=== PATIENT | female | born 2000 | race Hispanic/Latino ===

== ENCOUNTER 2021-10-31 18:07 | Emergency (ER) | payer MEDICAID, OTHER ==
[~2021-10-31] VITALS: Ht 167.6 cm; Wt 76.7 kg
[2021-10-31 18:14] VITALS: BP 115/77
== END 2021-10-31 22:35 | disposition left against medical advice (07) ==
LOC: EDH 18:07
DX: M54.50 Low back pain, unspecified (principal); Z53.21 Procedure and treatment not carried out due to patient leaving prior to being seen by health care provider

== ENCOUNTER 2025-09-24 21:07 | Emergency (ER) | payer SELFPAY ==
[~2025-09-24] VITALS: Ht 165.1 cm; Wt 80.7 kg
--- NOTE | 2025-09-24 21:09 | NUR ---
UA CUP PROVIDED
--- NOTE | 2025-09-24 21:21 | ERN ---
ED Note History of Present Illness Stated Complaint: ABD PAIN, Chief Complaint: Abdominal Pain Time Seen by MD: 21:11 Dictation: This is a 25-year-old female who presented to the emergency room complaining of abdominal discomfort that started about 5-6 hours ago. She has a known history of GERD and burning in her chest and she tried taking Pepcid and Tums drank water as it was persistent she came to the ER. No vomitings hematemesis or melena. No history of any cholelithiasis. Due to holidays she does admit to dietary indiscretions. No fever chills or rigors. Temperature 98.1 pulse 100 respirations 20 blood pressure 149/94 with a pulse oximetry of 99% on room air Chronic problems include gastroesophageal reflux disease but she has not never been formally evaluated with an EGD. Allergies: Coded Allergies: caffeine (Unverified Allergy, Unknown, 10/31/21) Home Meds Active Scripts Omeprazole (Omeprazole) 40 Mg Capsule.dr, 1 CAP PO DAILY for 30 Days, #30 CAP 0 Refills Prov:JOHN MONTES MD 09/24/25 Past Medical History Past Medical History: GERD, Other Additional Past Medical Hx: BACK PAIN Surgical History: None Family History: Negative Social History: Negative LMP: Sep 10, 2025 RN Note Reviewed/Agreed w/PFSH: Yes Review of System Dictation Constitutional: Negative for fever,chills, and weight loss Eyes: Negative for injury, pain,redness, and discharge ENT: Negative for injury,pain or swelling Cardiovascular: Negative for chest pain, palpitations, and edema Respiratory: Negative for shortness of breath, cough, and wheezing, Abdomen/GI: Negative for abdominal pain, nausea, vomiting, diarrhea, and constipation positive for heartburn and severe reflux Back: Negative for injury and pain : Negative for injury, bleeding and discharge MS/Extremity: Negative for injury and deformity Skin: Negative for rash, and discoloration Neuro: Negative for headache, weakness, numbness, tingling, and seizure Psych: Negative for suicide ideation, homicidal ideation, and hallucinations Initial Vital Sign VS Vital Signs Date Time Temp Pulse Resp B/P (MAP) Pulse Ox O2 Delivery O2 Flow Rate FiO2 09/24/25 21:09 98.1 100 20 149/94 99 Room Air 09/24/25 21:25 0 21 Physical Exam Dictation General: awake, alert, NAD Head/Face: Normocephalic, atraumatic Eyes: PERRL, EOMI, vision at baseline ENT: oral cavity clear, TMs clear, no signs of infection Neck: Trachea midline, supple, no nuchal rigidity Cardiovascular: RRR, normal S1/S2, No MRGs, no JVD mild tenderness in the xiphoid area Respiratory: CTAB, no respiratory distress, No rales or wheezes Abdomen: Soft, non-tender, non-distended, normal bowel sounds, no guarding or rebound. Skin: Warm, dry, normal turgor, no rash MS/Extremity: Pulses equal, no cyanosis, neurovascular intact, FROM Neuro: COAx4, GCS 15, strength 5/5, CN 2-12 intact, normal cerebellar exam, normal gait, Psych: Normal behavior, mood, and affect normal Extremities-trace edema without any palpable cords, Homans sign is negative Results (Laboratory/Radiology) Laboratory/Radiology Laboratory Tests Test 09/24/25 21:13 09/24/25 21:23 Urine Color LIGHT-YELLOW (YELLOW) Urine Appearance CLEAR (CLEAR) Urine pH 6.0 (5.0-8.0) Urine Specific Flora 1.016 (1.001-1.031) Urine Protein NEGATIVE mg/dL (NEGATIVE) Urine Glucose (UA) NEGATIVE mg/dL (NEGATIVE) Urine Ketones NEGATIVE mg/dL (NEGATIVE) Urine Occult Blood SMALL (NEGATIVE) H Urine Nitrate NEGATIVE (NEGATIVE) Urine Bilirubin NEGATIVE mg/dL (NEGATIVE) Urine Urobilinogen 0.2 mg/dL (0.2-1.0) Urine Leukocyte Esterase NEGATIVE Antoni/uL Urine RBC 2-5 /HPF (0-1) H Urine WBC 0-1 /HPF (0-1) Urine WBC Clumps (Auto) R /HPF (0-1) Urine Squamous Epithelial Cells Few /HPF (0-2) Urine Bacteria Rare /HPF (None Seen) Urine HCG, Qualitative NEGATIVE (NEGATIVE) White Blood Count 10.7 K/uL (4.8-10.8) Red Blood Count 4.15 MIL/uL (4.00-5.50) Hemoglobin 12.0 g/dL (12.0-16.0) Hematocrit 36.9 % (36-48) Mean Corpuscular Volume 88.9 fL (79-99) Mean Corpuscular Hemoglobin 28.9 pg (27.0-33.0) Mean Corpuscular Hemoglobin Concent 32.5 g/dL (32.0-36.0) Red Cell Distribution Width 12.9 % (11.0-15.5) Platelet Count 362 K/uL (130-400) Mean Platelet Volume 8.9 fL (7.5-10.5) Immature Granulocyte % (Auto) 0.5 % (0-1) Neutrophils (%) (Auto) 55.3 % (40.0-77.0) Lymphocytes (%) (Auto) 32.1 % (21.0-51.0) Monocytes (%) (Auto) 8.1 % (3.0-13.0) Eosinophils (%) (Auto) 3.5 % (0.0-8.0) Basophils (%) (Auto) 0.5 % (0.0-5.0) Neutrophils # (Auto) 5.9 K/uL (1.8-7.7) Lymphocytes # (Auto) 3.4 K/uL (1.0-4.8) Monocytes # (Auto) 0.9 K/uL (0.1-1.0) Eosinophils # (Auto) 0.37 K/uL (0.00-0.70) Basophils # (Auto) 0.05 K/uL (0.00-0.20) Absolute Immature Granulocyte (auto 0.05 K/uL (0-1) Nucleated Red Blood Cells 0.0 % (0.0-0.19) Sodium Level 137 mmol/L (136-145) Potassium Level 3.6 mmol/L (3.5-5.1) Chloride Level 100 mmol/L (101-111) L Carbon Dioxide Level 27 mmol/L (21-32) Blood Urea Nitrogen 13 mg/dL (7-18) Creatinine 0.8 mg/dL (0.5-1.0) Glomerular Filtration Rate Calc 104 mL/min (>90) Random Glucose 105 mg/dL (70-105) Total Calcium 8.9 mg/dL (8.5-10.1) Total Bilirubin 0.2 mg/dL (0.2-1.0) Direct Bilirubin < 0.1 mg/dL (0.0-0.3) Aspartate Amino Transf (AST/SGOT) 41 U/L (10-37) H Alanine Aminotransferase (ALT/SGPT) 97 U/L (12-78) H Alkaline Phosphatase 89 U/L (50-136) Total Protein 7.9 g/dL (6.0-8.3) Albumin 3.9 g/dL (3.5-5.0) Lipase 26 U/L (16-77) ED Course ED Course Orders Procedure Category Date Status Time Cbc With Differential LAB 09/24/25 Complete 21:10 Basic Metabolic Panel LAB 09/24/25 Complete 21:10 Hepatic Function Panel LAB 09/24/25 Complete 21:10 Lipase LAB 09/24/25 Complete 21:10 ,Urine Test LAB 09/24/25 Complete 21:10 Urinalysis Profile LAB 09/24/25 Complete 21:10 Lidocaine Hcl 2% PHA 09/24/25 Complete Viscous (Lidocaine Hcl 21:30 Mag/Alum/Simeth 30ml PHA 09/24/25 Complete (Maalox Plus 30ml) 21:30 Dicyclomine Hcl PHA 09/24/25 Complete (Bentyl 10mg/5ml 21:30 Current Medications Medications (Trade) Dose Ordered Sig/Meño Route PRN Reason Start Time Stop Time Status Last Admin Dose Admin Al Hydroxide/Mg Hydroxide (MAALox PLUS 30ML) 30 ml ONCE ONCE PO 09/24/25 21:30 09/24/25 21:31 DC 09/24/25 21:35 Dicyclomine HCl (Bentyl 10mg/5ml Syrup) 10 mg ONCE ONCE PO 09/24/25 21:30 09/24/25 21:31 DC 09/24/25 21:37 Lidocaine HCl (Lidocaine HCl 2% Viscous) 10 ml ONCE ONCE PO 09/24/25 21:30 09/24/25 21:31 DC 09/24/25 21:35 Vital Signs Date Time Temp Pulse Resp B/P (MAP) Pulse Ox O2 Delivery O2 Flow Rate FiO2 09/24/25 22:37 98.1 75 16 115/80 99 Room Air* 0 09/24/25 21:25 98.1 100 18 125/91 99 Room Air* 0 09/24/25 21:09 98.1 100 20 149/94 99 Room Air Medical Decision Making MDM Differential diagnosis: Gastritis, esophagitis, gastroesophageal reflux disease, acute cholecystitis, peptic ulcer disease, gastroenteritis, colitis, constipation, pancreatitis This is a 25-year-old female who presented to the emergency room complaining of abdominal discomfort that started about 5-6 hours ago. She has a known history of GERD and burning in her chest and she tried taking Pepcid and Tums drank water as it was persistent she came to the ER. No vomitings hematemesis or melena. No history of any cholelithiasis. Due to holidays she does admit to dietary indiscretions. No fever chills or rigors. Temperature 98.1 pulse 100 respirations 20 blood pressure 149/94 with a pulse oximetry of 99% on room air A trial of GI cocktail if it still does not improve we will consider further workup Patient responded to the GI cocktail and felt extremely good with resolution of her symptoms. I recommended to follow up with her primary care physician and do a trial of PPI. Chronic problems include gastroesophageal reflux disease but she has not never been formally evaluated with an EGD. Previous outside records reviewed: Old ER visits. Risk of complication and/or morbidity or mortality of patient management: None Medications-Per medication reconciliation Need for hospitalization: Patient does not meet criteria for hospitalization. Need for emergency major/minor surgery: No There are no social concerns with this patient. Prescription drug management Prescriptions will include symptomatic care Patient's prior external medical records from other ER visits were reviewed by me as indicated. Prior testing and results from previous visits were reviewed. Prior tests were taken into account with medical decision making and resource utilization, independent historian/historians were used to obtain complete medical history. I independently interpreted the test that were performed, results were reviewed by me and considered findings on radiology if ordered. Medical management and examination interpretation discussions were had by me with other qualified healthcare professionals as indicated for the patient's care. Problem List Problem List: (1) Gastroesophageal reflux disease (2) Esophagitis (3) Atypical chest pain DX & DISP Disposition: Discharge Departure Impression: Primary Impression: Atypical chest pain Additional Impressions: Esophagitis, Gastroesophageal reflux disease Condition: Stable Scripts Omeprazole (Omeprazole) 40 Mg Capsule. 1 CAP PO DAILY for 30 Days, #30 CAP 0 Refills Prov: JOHN MONTES MD 09/24/25 Additional Instructions: Patient and the caregiver have been informed of all the diagnostic tests and the imaging conducted during the today's visit to the emergency room and has verbalized understanding of the results I have personally reviewed and interpreted all diagnostic exams performed here in the ER today as well as the vital signs documented by the nursing staff. The patient is now being discharged to home and should follow up with the primary care physician or the specialist as directed by the ER staff. Referrals: SELF,REFERRAL (PCP) JOHN MONTES MD Sep 24, 2025 21:21
[2025-09-24 21:35] LABS: IMMATURE GRANULOCYTE ABSOLUTE 0.05 K/uL (0-1); NUCLEATED RED BLOOD CELLS 0.0 % (0.0-0.19); PLATELET COUNT (AUTO) 362 K/uL (130-400); RED BLOOD CELL COUNT(AUTO) 4.15 MIL/uL (4.00-5.50); RED CELL DISTRIBUTION WIDTH 12.9 % (11.0-15.5); WHITE BLOOD COUNT (AUTO) 10.7 K/uL (4.8-10.8)
[2025-09-24] MEDS: MAG/ALUM/SIMETH 30 ML UDCUP PO ONE (21:35)
[2025-09-24] MEDS: LIDOCAINE HCL 2% VISCOUS 15 ML UDCUP PO ONE (21:35)
[2025-09-24] MEDS: DICYCLOMINE HCL 10 MG/5 ML ML PO ONE (21:37)
[2025-09-24 21:38] LABS: APPEARANCE,URINE CLEAR (CLEAR); GLUCOSE, URINE (UA) NEGATIVE (NEGATIVE); LEUKOCYTE ESTERASE ,URINE NEGATIVE Leu/uL (NEGATIVE); NITRATE,URINE NEGATIVE (NEGATIVE); OCCULT BLOOD,URINE SMALL (NEGATIVE)
[2025-09-24 21:39] LABS: ADD UA MICROSCOPIC YES
[2025-09-24 21:40] LABS: HCG,QUALITATIVE URINE NEGATIVE (NEGATIVE)
[2025-09-24 21:43] LABS: CREATININE 0.8 mg/dL (0.5-1.0); GLOMERULAR FILTR. RATE CALC 104 mL/min (>90); GLUCOSE,RANDOM 105 mg/dL (70-105); SODIUM SERUM 137 mmol/L (136-145); UREA NITROGEN, BLOOD 13 mg/dL (7-18)
[2025-09-24] MEDS ORDERED: OMEP40CA21 PO (21:44)
[2025-09-24 21:47] LABS: ASPARTATE AMINOTRANSFERASE 41 U/L (10-37); TOTAL PROTEIN, SERUM 7.9 g/dL (6.0-8.3)
[2025-09-24 21:48] LABS: SQUAMOUS EPITHELIAL CELL,UR Few /HPF (0-2); WBC CLUMP R /HPF (0-1)
[2025-09-24 22:37] VITALS: BP 115/80; PULSE 75; RESP 16; TEMP 98.1; O2SAT 99
== END 2025-09-24 22:38 | disposition home or self-care (01) ==
LOC: EDH 21:07
DX: R07.89 Other chest pain (principal); K21.00 Gastro-esophageal reflux disease with esophagitis, without bleeding
CPT/HCPCS: 36415; 80048; 80076; 81001; 81025; 83690; 85025; 99284